=== PATIENT | female | born 2000 | race Two or more races ===

== ENCOUNTER 2022-03-09 14:03 | Emergency (ER) | payer MEDICAID, OTHER ==
[~2022-03-09] VITALS: Ht 167.6 cm; Wt 81.2 kg
[2022-03-09 14:14] VITALS: BP 145/91
== END 2022-03-09 19:15 | disposition left against medical advice (07) ==
LOC: ER 14:03
DX: R11.2 Nausea with vomiting, unspecified (principal); R55 Syncope and collapse; J45.909 Unspecified asthma, uncomplicated; F17.210 Nicotine dependence, cigarettes, uncomplicated

== ENCOUNTER 2022-07-10 14:26 | Emergency (ER) | payer MEDICAID ==
[~2022-07-10] VITALS: Ht 167.6 cm; Wt 86.0 kg
[2022-07-10 16:20] LABS: Urine Bacteria NONE SEEN /hpf (None Seen); Urine Blood Negative /uL (Negative); Urine Specific Gravity 1.025 (1.001-1.035); Urine WBC 1 /hpf (0 - 5)
[2022-07-10 16:27] LABS: Basophils # (auto) 0.1 10 ^3/uL (0-0.2); Eosinophils # (auto) 0 10 ^3/uL (0-0.8); Eosinophils % (auto) 0.6 % (0.0-7.0); Hematocrit 35.7 % (36.0-46.0); Hemoglobin 11.2 g/dL (12.2-16.2); Lymphocytes # (auto) 1.8 10 ^3/uL (0.4-5.4); Lymphocytes % (auto) 26.4 % (10.0-50.0); Mean Corpuscular Hemoglobin 24.7 pg (28.0-32.0); Mean Corpuscular Hgb Conc. 31.5 g/dL (32.0-36.0); Mean Corpuscular Volume 78.5 fL (80.0-100.0); Monocytes # (auto) 0.4 10 ^3/uL (0-1.3); Monocytes % (auto) 5.7 % (0.0-12.0); Neutrophils # (auto) 4.6 10 ^3/uL (1.6-8.6); Neutrophils % (auto) 66.3 % (37.0-80.0); Red Blood Cells 4.55 10^6/uL (4.0-5.20); Red Cell Distribution Width 17.2 % (11.8-14.3); White Blood Cell 6.9 10^3/uL (4.4-10.8)
[2022-07-10 16:34] LABS: Amphetamine Screen, Urine NEGATIVE (NEGATIVE); Barbiturate Scree,Urine NEGATIVE (NEGATIVE); Benzodiazephine Screen, Urine NEGATIVE (NEGATIVE); Cannabinoid Screen, Urine POSITIVE (NEGATIVE); Cocaine Screen, Urine NEGATIVE (NEGATIVE); Opiate Scree,Urine NEGATIVE (NEGATIVE); Phencyclidine Screen, Urine NEGATIVE (NEGATIVE)
[2022-07-10 16:45] LABS: Albumin 3.7 g/dL (3.4-5.0); BUN/Creatinine Ratio 18.2; Calcium 8.9 mg/dL (8.5-10.1); Magnesium 1.9 mg/dL (1.6-2.6); Salicylate < 1.7 mg/dL (2.8-20.0)
[2022-07-10 16:47] LABS: Bilirubin, Total 0.3 mg/dL (0.2-1.0)
[2022-07-10 16:49] LABS: Acetaminophen < 2.0 ug/mL (10-30)
[2022-07-10] MEDS: ALUM & MAG HYDROX-SIMETH LIQ(MAALOX) 30 ML PO ONE ×2 (18:00→18:47)
[2022-07-10] MEDS: FAMOTIDINE 20 MG TAB PO ONE ×2 (18:00→18:47)
[2022-07-10 19:05] LABS: Salicylate < 1.7 mg/dL (2.8-20.0)
[2022-07-10 19:07] LABS: Albumin 3.7 g/dL (3.4-5.0); BUN/Creatinine Ratio 17.1; Calcium 9.1 mg/dL (8.5-10.1); Potassium 4.1 mmol/L (3.5-5.1)
[2022-07-10 19:09] LABS: Acetaminophen < 2.0 ug/mL (10-30)
[2022-07-10 19:10] LABS: Bilirubin, Total 0.3 mg/dL (0.2-1.0); Total Protein 7.5 g/dL (6.4-8.2)
[2022-07-10 21:07] VITALS: BP 119/66
== END 2022-07-10 22:30 | disposition left against medical advice (07) ==
LOC: ER 14:26
DX: T65.92XA Toxic effect of unspecified substance, intentional self-harm, initial encounter (principal); F32.9 Major depressive disorder, single episode, unspecified; F41.9 Anxiety disorder, unspecified; J45.909 Unspecified asthma, uncomplicated; R94.31 Abnormal electrocardiogram [ECG] [EKG]; F17.210 Nicotine dependence, cigarettes, uncomplicated; F12.10 Cannabis abuse, uncomplicated; Z32.02 Encounter for pregnancy test, result negative
CPT/HCPCS: 36415; 71045; 80053; 80307; 80320; 80329; 81001; 81025; 83735; 85025; 93005